=== PATIENT | male | born 1970 | race Caucasian/White ===

== ENCOUNTER → 2018-06-17 | Outpatient (CLI) | payer BC, OTHER ==
[2018-06-17 19:42] LABS: ANION GAP 7 MEQ/L (8-16); BILIRUBIN,TOTAL 0.8 MG/DL (0.2-1.0); BLOOD UREA NITROGEN 18 MG/DL (7-18); CALCIUM LEVEL 9.1 MG/DL (8.5-10.1); CARBON DIOXIDE LEVEL 28 MEQ/L (21-32); CHLORIDE LEVEL 107 MEQ/L (98-107); CREATININE FOR GFR 0.88 MG/DL (0.70-1.30); GLOMERULAR FILTRATION RATE > 60.0 (>60); GLUCOSE, FASTING 84 MG/DL (70-100); POTASSIUM SERUM 4.5 MEQ/L (3.5-5.1); SODIUM LEVEL 142 MEQ/L (136-145)
[2018-06-20 00:09] LABS: SOMATOMEDIN-C INSULIN GROWTH 103 ng/mL (67-205)
== END ==
LOC: M WUC 16:05
DX: I10 Essential (primary) hypertension (principal); E88.81 Metabolic syndrome and other insulin resistance
CPT/HCPCS: 82247

== ENCOUNTER → 2018-09-24 | Outpatient (REF) | payer BC, OTHER ==
[~2018-09-24] MED LIST: ASPI81TA45 OR
[2018-09-24 12:38] LABS: INFLUENZA A AMPLIFICATION NEGATIVE (NEGATIVE); INFLUENZA B AMPLIFICATION NEGATIVE (NEGATIVE)
== END ==
LOC: M LAB REF 11:22
PROVIDERS: ATTEND Physician Assistant
DX: J11.1 Influenza due to unidentified influenza virus with other respiratory manifestations (principal)

== ENCOUNTER → 2018-11-23 | Outpatient (REF) ==
--- NOTE | 2018-11-24 03:26 | REP ---
Clinical: Chest pain . Comparison: 12/15/2015 . Technique: PA and lateral. Findings: The mediastinum and cardiac silhouette are normal. The lung chin are clear and without acute consolidation, effusion, or pneumothorax. The skeletal structures are intact and normal. Impression: 1. No acute cardiopulmonary process. Electronically Signed by Denton Wiley MD 11/24/2018 03:18 A
== END ==
LOC: M SMT 14:21
PROVIDERS: ATTEND Internal Medicine
DX: Z02.89 Encounter for other administrative examinations (principal); R07.9 Chest pain, unspecified

== ENCOUNTER → 2021-01-01 | Outpatient (REF) | payer OTHER | LOC: M LAB REF 21:20 | PROVIDERS: ATTEND Physician Assistant | DX: J02.9 Acute pharyngitis, unspecified (principal) ==

== ENCOUNTER → 2024-06-20 | Outpatient (REF) | LOC: M PLAIMG 12:31 | PROVIDERS: ATTEND Internal Medicine | DX: Z00.00 Encounter for general adult medical examination without abnormal findings (principal) ==